=== PATIENT | female | born 1975 | race African-American/Black ===

== ENCOUNTER 2019-12-17 08:57 | Inpatient (IN) | payer OTHER ==
--- NOTE | 2019-12-17 09:08 | BHS.RME ---
Substance Use & Tx History - Substance Use History Alcohol Substance amount: 1/2 gallon Tequilla or whiskey Frequency of use: Daily Substance route: Oral Date of Last Use: 12/15/19 Heroin Substance amount: 2 bundles Frequency of use: Daily Substance route: Inhalation (ex: sniffing or snorting) Date of Last Use: 12/15/19 Cocaine-Crack Substance amount: $200 Frequency of use: Daily Substance route: Inhalation (ex: sniffing or snorting) Date of Last Use: 12/15/19 Nicotine Substance amount: one pack Frequency of use: Daily Substance route: Smoking Date of Last Use: 12/17/19 - Last Treatment Date of last treatment: October 2015 Treatment type: Substance Use Disorder (ANDRZEJ) Where was last treatment: Detox Physical/Psych/Mental Status - Behavior General Behavior: Increased activity (restlessness, agitation) Eye Contact: Normal - Cooperativeness Cooperativeness: Cooperative - Thinking Thought Processes: Tight Thought content: Future oriented - Physical Health Problems Is patient presently having any pain?: No Does patient presently have any injuries (include location): No Does patient currently have a fever: No COWS - Scale Resting Pulse: 0= [place] 80 or Below Sweatin=Flushed/Facial Moisture Restless Observation: 1= Difficult to Sit Still Pupil Size: 0= Normal to Room Light Bone or Joint Aches: 1= Mild Discomfort Runny Nose/ Eye Tearin= Runny Nose/Eyes GI Upset > 30mins: 3= Vomiting/Diarrhea Tremor Observation: 2= Slight Tremor Visible Yawning Observation: 0= None Anxiety or Irritability: 1=Feels Anxious/Irritable Goose Flesh Skin: 0=Smooth Skin COWS Score: 12 CIWA Nausea/Vomitin Muscle Tremors: 4-Moderate,w/Arms Extend Anxiety: 1-Mildly Anxious Agitation: 0-Normal Activity Paroxysmal Sweats: 3 Orientation: 1-Uncertain about Date Tacttile Disturbances: 0-None Auditory Disturbances: 1-Very Mild Visual Disturbances: 2-Mild Sensitivity Headache: 4-Moderately Severe CIWA-Ar Total Score: 19
[2019-12-17 09:20] VITALS: BMI 22.3
--- NOTE | 2019-12-17 09:21 | HP ---
COWS - Scale Resting Pulse: 0= [place] 80 or Below Sweatin=Flushed/Facial Moisture Restless Observation: 1= Difficult to Sit Still Pupil Size: 0= Normal to Room Light Bone or Joint Aches: 1= Mild Discomfort Runny Nose/ Eye Tearin= Runny Nose/Eyes GI Upset > 30mins: 3= Vomiting/Diarrhea Tremor Observation: 2= Slight Tremor Visible Yawning Observation: 0= None Anxiety or Irritability: 1=Feels Anxious/Irritable Goose Flesh Skin: 0=Smooth Skin COWS Score: 12 CIWA Score Nausea/Vomitin Muscle Tremors: 4-Moderate,w/Arms Extend Anxiety: 1-Mildly Anxious Agitation: 0-Normal Activity Paroxysmal Sweats: 3 Orientation: 1-Uncertain about Date Tacttile Disturbances: 0-None Auditory Disturbances: 1-Very Mild Visual Disturbances: 2-Mild Sensitivity Headache: 4-Moderately Severe CIWA-Ar Total Score: 19 - Admission Criteria OASAS Guidelines: Admission for Medically Managed Detox: Requires at least one of the followin. CIWA greater than 12 2. Seizures within the past 24 hours 3. Delirium tremens within the past 24 hours 4. Hallucinations within the past 24 hours 5. Acute intervention needed for co occurring medical disorder 6. Acute intervention needed for co occurring psychiatric disorder 7. Severe withdrawal that cannot be handled at a lower level of care (continued vomiting, continued diarrhea, abnormal vital signs) requiring intravenous medication and/or fluids 8. Admitting History and Physical - Admission Chief Complaint: Ms. Mckenna is a 44 yo woman who presents to [facility] requesting detox from multiple substances. History of Present Illness: Ms. Mckenna is a 44 yo woman who presents to [facility] requesting detox from multiple substances. She was last here in October 2015 and relapsed almost immediately upon discharge. 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 No Narcan at home. Cocaine-Crack Substance amount: $200 Frequency of use: Daily Substance route: Inhalation (ex: sniffing or snorting) Date of Last Use: 12/15/19 Began: age 17 y Nicotine Substance amount: one pack Frequency of use: Daily Substance route: Smoking Date of Last Use: 12/17/19 First smoke: age 17 y Oxycodone: will take up to 5 tabs of 10 mg when she can't get heroin, last dose: 2 days ago Benzos: friends give her some, will take up to 5 tabs, unsure of dose, last taken 2 days ago Methadone: buys on street - Last Treatment Date of last treatment: October 2015 Treatment type: Substance Use Disorder (ANDRZEJ) Where was last treatment: Detox 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 History Source: Patient Limitations to Obtaining History: No Limitations - Past Medical History ...LMP: 10/17/15 - Smoking History Smoking history: Current every day smoker Have you smoked in the past 12 months: Yes Aproximately how many cigarettes per day: 10 Admission [facility] Allergies/Adverse Reactions: Allergies Allergy/AdvReac Type Severity Reaction Status Date / Time No Known Allergies Allergy Verified 12/17/19 09:16 Exam Limitations: No Limitations - Ebola screening Have you traveled outside of the country in the last 21 days: No Have you been sick,other than usual withdrawal symptoms: No Do you have a fever: No - Review of Systems Constitutional: No Symptoms Reported EENT: reports: No Symptoms Reported Respiratory: reports: No Symptoms reported Cardiac: reports: No Symptoms Reported GI: reports: No Symptoms Reported : reports: No Symptoms Reported Musculoskeletal: reports: Back Pain Integumentary: reports: No Symptoms Reported Neuro: reports: No Symptoms reported Endocrine: reports: No Symptoms Reported Hematology: reports: No Symptoms Reported Psychiatric: reports: Anxious Patient History - Patient Medical History Hx Anemia: No Hx Asthma: No Hx Chronic Obstructive Pulmonary Disease (COPD): No Hx Cancer: No Hx Cardiac Disorders: No Hx Congestive Heart Failure: No Hx Hypertension: No Hx Hypercholesterolemia: No Hx Pacemaker: No HX Cerebrovascular Accident: No Hx Seizures: No Hx Dementia: No Hx Diabetes: No Hx Gastrointestinal Disorders: No Hx Liver Disease: No Hx Genitourinary Disorders: No Hx Sexually Transmitted Disorders: No Hx Renal Disease (ESRD): No Hx Thyroid Disease: No Hx Human Immunodeficiency Virus (HIV): No Hx Hepatitis C: No Hx Depression: No Hx Suicide Attempt: No Hx Bipolar Disorder: No Hx Schizophrenia: No - Patient Surgical History Past Surgical History: No Hx Neurologic Surgery: No Hx Cataract Extraction: No Hx Cardiac Surgery: No Hx Lung Surgery: No Hx Breast Surgery: No Hx Breast Biopsy: No Hx Abdominal Surgery: No Hx Appendectomy: No Hx Cholecystectomy: No Hx Genitourinary Surgery: No Hx Section: No Hx Orthopedic Surgery: No Hx Hysterectomy: No Anesthesia Reaction: No - PPD History Date: 10/20/15 - Reproductive History Last Menstrual Period: 10/17/15 - Smoking Cessation Smoking history: Current every day smoker Have you smoked in the past 12 months: Yes Aproximately how many cigarettes per day: 20 Hx Chewing Tobacco Use: No Initiated information on smoking cessation: Yes 'Breaking Loose' booklet given: 12/17/19 - Substances abused Alcohol Substance route: Oral Frequency: Daily Amount used: 1/2 [place] Age of first use: 17 Date of last use: 12/15/19 Heroin Substance route: Inhalation Frequency: Daily Amount used: 2 BUNDLES Age of first use: 17 Date of last use: 12/15/19 Crack Substance route: Smoking Frequency: Daily Amount used: $200 Age of first use: 17 Date of last use: 12/15/19 Admission Physical Exam S - Physical General Appearance: Yes: Mild Distress, Thin, Tremorous, Anxious HEENTM: Yes: EOMI, Hearing grossly Normal, Normocephalic, Normal Voice Respiratory: Yes: Lungs Clear, No Respiratory Distress, No Accessory Muscle Use Neck: Yes: Within Normal Limits, Supple Breast: Yes: Breast Exam Deferred Cardiology: Yes: Regular Rhythm, Regular Rate Abdominal: Yes: Normal Bowel Sounds, Flat, Soft, Tenderness (mild "near hernia", mildline periumbilical) Genitourinary: Yes: Other (deferred) Back: Yes: Normal Inspection Musculoskeletal: Yes: Gait Steady Extremities: Yes: Normal Inspection, Non-Tender Neurological: Yes: Normal Mood/Affect, Normal Response Integumentary: Yes: Normal Color, Dry, Warm - Diagnostic (1) Alcohol dependence with withdrawal, uncomplicated Current Visit: Yes Status: Acute (2) Opiate withdrawal Current Visit: Yes Status: Acute (3) HTN (hypertension) Current Visit: Yes Status: Chronic Qualifiers: Hypertension type: essential hypertension Qualified Code(s): I10 - Essential (primary) hypertension (4) Sedative abuse Current Visit: Yes Status: Acute (5) Nicotine dependence Current Visit: No Status: Acute Qualifiers: Nicotine product type: cigarettes Substance use status: uncomplicated Qualified Code(s): F17.210 - Nicotine dependence, cigarettes, uncomplicated Cleared for Admission [facility] - Detox or Rehab [facility] Level of Care: Medically Managed Detox Regimen/Protocol: Methadone/Librium Breathalyzer - Breathalyzer Breathalyzer: 0 Urine Drug Screen - Results Urine drug screen results: THC-Marijuana, CHANCE-Cocaine, OXY-Oxycodone, MTD- Methadone, BZO-Benzodiazepines Inpatient Rehab Admission - Rehab Decision to Admit Inpatient rehab admission?: No
[2019-12-17] MEDS ORDERED: ACETAMINOPHEN 325 MG TABLET (FP) PO PRN ×2 (09:28)
[2019-12-17] MEDS ORDERED: MENTHOL/PHENOL 1 EACH UD MM PRN (09:28)
[2019-12-17] MEDS ORDERED: MAG HYDROX/AL HYDROX/SIMETH 30 ML UNIT-DOSE CUP PO PRN (09:28)
[2019-12-17] MEDS ORDERED: METHOCARBAMOL 500 MG TABLET PO PRN (09:28)
[2019-12-17] MEDS ORDERED: MAGNESIUM HYDROX 2400MG/30ML ORAL SUSPENSION 30 ML CUP PO PRN (09:28)
[2019-12-17] MEDS ORDERED: chlordiazePOXIDE HCL 25 MG CAPSULE PO PRN (09:28)
[2019-12-17] MEDS ORDERED: MAGNESIUM CITRATE 300 ML BOTTLE PO PRN (09:28)
[2019-12-17] MEDS ORDERED: cloNIDine HCL 0.1 MG TABLET PO PRN (09:28)
[2019-12-17] MEDS ORDERED: NICOTINE POLACRILEX 2 MG GUM BUC PRN (09:28)
[2019-12-17] MEDS ORDERED: IBUPROFEN 400 MG TABLET (FP) PO PRN (09:28)
[2019-12-17] MEDS ORDERED: BISMUTH SUBSALICYLATE 524 MG/30 ML UD PO PRN (09:28)
[2019-12-17] MEDS ORDERED: ONDANSETRON *ODT* 4 MG TABLET SL PRN (09:28)
[2019-12-17] MEDS ORDERED: LISINOPRIL 10 MG TABLET (FP) ONE (09:43)
[2019-12-17] MEDS ORDERED: METHADONE HCL 10 MG TABLET (FOR DETOX USE ONLY) PO ONE (10:00)
[2019-12-17] MEDS ORDERED: LISINOPRIL 10 MG TABLET (FP) PO ONE (10:15)
[2019-12-17] MEDS: hydrOXYzine PAMOATE 25 MG CAPSULE (FP) PO SCH ×4 (10:39→22:31)
[2019-12-17] MEDS: chlordiazePOXIDE HCL 25 MG CAPSULE PO SCH ×3 (10:39→22:32)
[2019-12-17] MEDS: NICOTINE 21 MG/24 HOURS TOPICAL PATCH TD SCH (10:40)
[2019-12-17] MEDS: PRENATAL VITAMINS W/ FOLIC ACID TABLET (FP) PO SCH (10:40)
[2019-12-17 14:49] LABS: HEMATOCRIT 32.9 % (32.4-45.2); HEMOGLOBIN 10.8 GM/dL (10.7-15.3); MCH 30.2 pg (25.7-33.7); MCHC 32.8 g/dl (32.0-36.0); MEAN PLT VOLUME 7.8 fl (7.5-11.1); PLATELET COUNT 394 K/MM3 (134-434); RBC 3.57 M/mm3 (3.60-5.2); RDW 13.1 % (11.6-15.6); WHITE BLOOD COUNT 6.9 K/mm3 (4.0-10.0)
[2019-12-17 14:59] LABS: ALBUMIN 3.5 g/dl (3.4-5.0); BILIRUBIN,TOTAL 0.2 mg/dL (0.2-1); BLOOD UREA NITROGEN 21.9 mg/dL (7-18); CALCIUM 9.2 mg/dL (8.5-10.1); CREATININE 1.3 mg/dL (0.55-1.3); POTASSIUM 4.1 mmol/L (3.5-5.1); TOT PROT 7.4 g/dl (6.4-8.2)
--- NOTE | 2019-12-17 15:30 | EKG ---
Test Reason : Blood Pressure : / mmHG Vent. Rate : 059 BPM Atrial Rate : 059 BPM P-R Int : 134 ms QRS Dur : 096 ms QT Int : 438 ms P-R-T Axes : 073 062 046 degrees QTc Int : 433 ms SINUS BRADYCARDIA MINIMAL VOLTAGE CRITERIA FOR LVH, MAY BE NORMAL VARIANT BORDERLINE ECG NO PREVIOUS ECGS AVAILABLE Confirmed by CAMILLE NUNO MD ([id number]) on 12/17/2019 3:29:59 PM Referred By: Confirmed By:CAMILLE NUNO MD
[2019-12-17] MEDS: THIAMINE HCL 100 MG TABLET (FP) PO SCH (22:31)
[2019-12-17] MEDS: MELATONIN 5 MG TABLETS PO SCH (22:32)
[2019-12-18] MEDS: hydrOXYzine PAMOATE 25 MG CAPSULE (FP) PO SCH ×5 (06:56→22:41)
[2019-12-18] MEDS: chlordiazePOXIDE HCL 25 MG CAPSULE PO SCH ×4 (06:56→22:41)
[2019-12-18] MEDS ORDERED: METHADONE HCL 5 MG TABLET (FOR DETOX USE ONLY) ONE (09:29)
[2019-12-18] MEDS ORDERED: METHADONE HCL 10 MG TABLET (FOR DETOX USE ONLY) ONE (09:29)
[2019-12-18] MEDS ORDERED: METHADONE (DETOX) 20 MG, METHADONE (DETOX) 5 MG PO ONE (10:00)
[2019-12-18] MEDS: PRENATAL VITAMINS W/ FOLIC ACID TABLET (FP) PO SCH (10:06)
[2019-12-18] MEDS: NICOTINE 21 MG/24 HOURS TOPICAL PATCH TD SCH (10:06)
--- NOTE | 2019-12-18 10:10 | PN ---
[facility] CIWA - CIWA Score Nausea/Vomitin-Int. Nausea w/Dry Heave Anxiety: 1-Mildly Anxious Agitation: 0-Normal Activity Paroxysmal Sweats: No Perspiration Orientation: 1-Uncertain about Date Tacttile Disturbances: 1-Very Mild Itch/Numbness Auditory Disturbances: 0-None Visual Disturbances: 1-Very Mild Sensitivity S COWS - Scale Resting Pulse: 1= [place] 81-100 Sweatin= No chills or Flushing Restless Observation: 0= Sits Still Pupil Size: 0= Normal to Room Light Bone or Joint Aches: 0= None Runny Nose/ Eye Tearin= None GI Upset > 30mins: 0= None Tremor Observation of Outstretched Hands: 0= None Yawning Observation: 0= None Anxiety or Irritability: 1=Feels Anxious/Irritable Goose Flesh Skin: 0=Smooth Skin COWS Score: 2 [facility] Progress Note (SOAP) Subjective: Patient examined in the room. Patient was laying in bed. Patient stated she has been feeling better and has no further complaints. Objective: 12/18/19 10:10 General: Patient alert and in no acute distress, WNWD Mental status: Patient judgment intact, mild anxiety MSK/Neuro: Patient MS 5/5, sensation intact Gait: Patient ambulates properly, gait steady 12/18/19 10:11 Last Vital Signs Temp Pulse Resp BP Pulse Ox 97.4 F L 73 16 132/61 99 12/18/19 08:50 12/18/19 08:50 12/18/19 08:50 12/18/19 08:50 12/18/19 08:50 CBC, BMP 12/17/19 09:45 12/17/19 09:45 Current Medications Generic Name Dose Route Start Last Admin Trade Name Freq PRN Reason Stop Dose Admin Acetaminophen 650 mg 12/17/19 09:28 Tylenol - PO Q6H PRN PAIN LEVEL 4 - 6 Acetaminophen 650 mg 12/17/19 09:28 Tylenol - PO Q6H PRN FEVER Al Hydroxide/Mg Hydroxide 30 ml 12/17/19 09:28 Mylanta Oral Suspension - PO Q6H PRN DYSPEPSIA Bismuth Subsalicylate 524 mg 12/17/19 09:28 Pepto-Bismol - PO Q1H PRN DIARRHEA Chlordiazepoxide HCl 50 mg 12/17/19 11:00 12/18/19 10:06 Librium - PO 12/18/19 23:01 50 mg [id number] MAYA Administration Chlordiazepoxide HCl 25 mg 12/19/19 05:00 Librium - PO 12/19/19 23:01 [id number] MAYA Chlordiazepoxide HCl 25 mg 12/17/19 09:28 Librium - PO 12/19/19 23:59 Q4H PRN WITHDRAWAL(CONT SUBST) Chlordiazepoxide HCl 10 mg 12/20/19 05:00 Librium - PO 12/20/19 23:01 [id number] MAYA Chlordiazepoxide HCl 10 mg 12/21/19 05:00 Librium - PO 12/21/19 17:01 Q12H MAYA Chlordiazepoxide HCl 10 mg 12/20/19 00:00 Librium - PO 12/21/19 00:00 Q4H PRN WITHDRAWAL(CONT SUBST) Chlordiazepoxide HCl 10 mg 12/22/19 05:00 Librium - PO 12/22/19 05:01 ONCE@0500 ONE Clonidine 0.1 mg 12/17/19 09:28 Catapres - PO 12/19/19 23:59 Q4H PRN Withdrawal Symptoms Eucalyptus/Menthol/Phenol/Sorbitol 1 each 12/17/19 09:28 Cepastat Lozenge - MM 12/23/19 09:28 Q4H PRN SORE THROAT Hydroxyzine Pamoate 25 mg 12/17/19 10:00 12/18/19 10:05 Vistaril - PO 12/23/19 09:28 25 mg Q4HWA MAYA Administration Ibuprofen 400 mg 12/17/19 09:28 Motrin - PO Q6H PRN PAIN LEVEL 1 - 3 Magnesium Citrate 300 ml 12/17/19 09:28 Citroma - PO Q48H PRN CONSTIPATION Magnesium Hydroxide 30 ml 12/17/19 09:28 Milk Of Magnesia - PO PRN PRN CONSTIPATION Melatonin 5 mg 12/17/19 22:00 12/17/19 22:32 Melatonin PO 5 mg HS MAYA Administration Methadone HCl 5 mg 12/22/19 06:00 Dolophine - PO 12/22/19 06:01 ONCE@0600 ONE Methadone HCl 10 mg 12/21/19 10:00 Dolophine - PO 12/21/19 10:01 ONCE ONE Methadone HCl 20 mg 12/19/19 10:00 Dolophine - PO 12/19/19 10:01 ONCE ONE Methadone HCl 10 mg/ Methadone 15 mg 12/20/19 10:00 HCl 5 mg PO 12/20/19 10:01 ONCE ONE Methocarbamol 500 mg 12/17/19 09:28 Robaxin - PO 12/23/19 09:28 Q6H PRN MUSCLE SPASMS Nicotine 21 mg 12/17/19 10:00 12/18/19 10:06 Nicoderm Patch - TD Not Given DAILY MAYA Nicotine Polacrilex 2 mg 12/17/19 09:28 Nicorette Gum - BUC Q2H PRN NICOTINE REPLACEMENT RX Ondansetron HCl 4 mg 12/17/19 09:28 Zofran Odt - SL 12/23/19 09:30 Q8H PRN Nausea/Vomiting Multivit/Folic Acid/Iron 1 tab 12/17/19 10:00 12/18/19 10:06 Vitamins (Sjr) - PO 1 tab DAILY MAYA Administration Thiamine HCl 100 mg 12/17/19 22:00 12/17/19 22:31 Vitamin B1 - PO 100 mg HS MAYA Administration Discontinued Medications Generic Name Dose Route Start Last Admin Trade Name Reyq PRN Reason Stop Dose Admin Lisinopril 10 mg 12/17/19 10:15 12/17/19 09:45 Prinivil PO 12/17/19 10:16 10 mg ONCE ONE Administration Methadone HCl 30 mg 12/17/19 10:00 12/17/19 10:39 Dolophine - PO 12/17/19 10:01 30 mg ONCE ONE Administration Methadone HCl 20 mg/ Methadone 25 mg 12/18/19 10:00 12/18/19 10:05 HCl 5 mg PO 12/18/19 10:01 25 mg ONCE ONE Administration Tuberculin PPD 5 units 12/17/19 10:00 12/17/19 10:44 Tubersol ([facility] Only) 5ml Vial ID 12/17/19 10:01 5 tu ONCE ONE Administration Assessment: 12/18/19 10:11 1. Patient on librium taper for alcohol abuse 2. Patient on methadone protocol for heroin use Plan: 1. Patient on librium protocol for ongoing alcohol abuse 2. Patient on methadone protocol for heroin use 3. Continue detox regimen and monitor vitals
[2019-12-18] MEDS ORDERED: ONDANSETRON *ODT* 4 MG TABLET SL ONE (19:00)
--- NOTE | 2019-12-18 19:00 | PN ---
S Progress Note Note: Vital Signs Temperature 97.1 F L 12/18/19 16:37 Pulse Rate 85 12/18/19 16:37 Respiratory Rate 18 12/18/19 16:37 Blood Pressure 144/89 12/18/19 16:37 O2 Sat by Pulse Oximetry (%) 98 12/18/19 13:14 c/o of nausea d/t withdrawal sx one time dose zofran 4mg fluids as tolerated continue to monitor
[2019-12-18] MEDS: THIAMINE HCL 100 MG TABLET (FP) PO SCH (22:41)
[2019-12-18] MEDS: MELATONIN 5 MG TABLETS PO SCH (22:41)
[2019-12-19] MEDS ORDERED: MASKS NR ONE (02:21)
[2019-12-19] MEDS: hydrOXYzine PAMOATE 25 MG CAPSULE (FP) PO SCH ×5 (05:41→22:59)
[2019-12-19] MEDS: chlordiazePOXIDE HCL 25 MG CAPSULE PO SCH ×4 (05:41→22:59)
[2019-12-19] MEDS ORDERED: METHADONE HCL 10 MG TABLET (FOR DETOX USE ONLY) PO ONE (10:00)
[2019-12-19] MEDS: PRENATAL VITAMINS W/ FOLIC ACID TABLET (FP) PO SCH (10:14)
[2019-12-19] MEDS: NICOTINE 21 MG/24 HOURS TOPICAL PATCH TD SCH (10:14)
--- NOTE | 2019-12-19 10:25 | PN ---
[facility] CIWA - CIWA Score Nausea/Vomitin-No Nausea/No Vomiting Muscle Tremors: 2 Anxiety: 2 Agitation: 0-Normal Activity Paroxysmal Sweats: 2 Orientation: 0-Oriented Tacttile Disturbances: 0-None Auditory Disturbances: 0-None Visual Disturbances: 0-None Headache: 2-Mild CIWA-Ar Total Score: 8 [facility] COWS - Scale Resting Pulse: 0= [place] 80 or Below Sweatin= No chills or Flushing Restless Observation: 1= Difficult to Sit Still Pupil Size: 0= Normal to Room Light Bone or Joint Aches: 2= Severe Diffuse Aches Runny Nose/ Eye Tearin= None GI Upset > 30mins: 0= None Tremor Observation of Outstretched Hands: 2= Slight Tremor Visible Yawning Observation: 1= 1-2x During Session Anxiety or Irritability: 2=Irritable/Anxious Goose Flesh Skin: 0=Smooth Skin COWS Score: 8 S Progress Note (SOAP) Subjective: c/o anxiety, shakes, sweats, and headache. Objective: 12/19/19 10:25 Vital Signs 12/19/19 12/19/19 06:38 09:40 Temperature 98.1 F 97.5 F L Pulse Rate 69 79 Respiratory 18 18 Rate Blood Pressure 102/66 116/80 O2 Sat by Pulse 100 100 Oximetry (%) Laboratory Last Values WBC 6.9 K/mm3 (4.0-10.0) 12/17/19 09:45 RBC 3.57 M/mm3 (3.60-5.2) L 12/17/19 09:45 Hgb 10.8 GM/dL (10.7-15.3) 12/17/19 09:45 Hct 32.9 % (32.4-45.2) D 12/17/19 09:45 MCV 92.0 fl (80-96) 12/17/19 09:45 MCH 30.2 pg (25.7-33.7) 12/17/19 09:45 MCHC 32.8 g/dl (32.0-36.0) 12/17/19 09:45 RDW 13.1 % (11.6-15.6) D 12/17/19 09:45 Plt Count 394 K/MM3 (134-434) 12/17/19 09:45 MPV 7.8 fl (7.5-11.1) 12/17/19 09:45 Sodium 139 mmol/L (136-145) 12/17/19 09:45 Potassium 4.1 mmol/L (3.5-5.1) 12/17/19 09:45 Chloride 105 mmol/L (98-107) 12/17/19 09:45 Carbon Dioxide 31 mmol/L (21-32) 12/17/19 09:45 Anion Gap 3 MMOL/L (8-16) L 12/17/19 09:45 BUN 21.9 mg/dL (7-18) H 12/17/19 09:45 Creatinine 1.3 mg/dL (0.55-1.3) 12/17/19 09:45 Est GFR (CKD-EPI)AfAm 58.19 12/17/19 09:45 Est GFR (CKD-EPI)NonAf 50.20 12/17/19 09:45 Random Glucose 81 mg/dL (74-106) 12/17/19 09:45 Calcium 9.2 mg/dL (8.5-10.1) 12/17/19 09:45 Total Bilirubin 0.2 mg/dL (0.2-1) 12/17/19 09:45 AST 11 U/L (15-37) L 12/17/19 09:45 ALT 14 U/L (13-61) 12/17/19 09:45 Alkaline Phosphatase 54 U/L (45-117) 12/17/19 09:45 Total Protein 7.4 g/dl (6.4-8.2) 12/17/19 09:45 Albumin 3.5 g/dl (3.4-5.0) 12/17/19 09:45 POC Urine HCG, Qual Negative 12/17/19 09:20 Syphilis Serology Non-reactive (NONREACTIVE) 12/17/19 09:45 COVID-19 (KIARA) Not detected (Not Detected) 12/17/19 09:45 Labs noted. Assessment: 12/19/19 10:25 AOX3, in no acute respiratory distress. Full ROM, ambulating in the unit. Withdrawal symptoms. Plan: continue detox.
[2019-12-19] MEDS: THIAMINE HCL 100 MG TABLET (FP) PO SCH (22:59)
[2019-12-19] MEDS: MELATONIN 5 MG TABLETS PO SCH (22:59)
[2019-12-20] MEDS ORDERED: chlordiazePOXIDE HCL 10 MG CAPSULE PO PRN
[2019-12-20] MEDS ORDERED: chlordiazePOXIDE HCL 10 MG CAPSULE PO SCH (05:00)
[2019-12-20] MEDS: hydrOXYzine PAMOATE 25 MG CAPSULE (FP) PO SCH (05:46)
[2019-12-20 09:29] VITALS: BP 131/78; PULSE 91; TEMP 97.7
[2019-12-20] MEDS ORDERED: METHADONE (DETOX) 10 MG, METHADONE (DETOX) 5 MG PO ONE (10:00)
--- NOTE | 2019-12-20 13:27 | DS ---
[facility] Detox Discharge Summary Admission Date: 12/17/19 Discharge Date: 12/20/19 - History Present History: Alcohol Dependence, Opioid Dependence Additional Comments: 44 years old female was admitted on 12/17/19 for alcohol and opiate withdrawal treated with librium and methadone regiments ms gomez insists to leave the detox unit today that "I have life ahead of me" alert oriented x 3 steady gaits General Appearance: Yes: no Distress, Thin, mild Tremorous, less Anxious HEENTM: Yes: EOMI, Hearing grossly Normal, Normocephalic, Normal Voice Respiratory: Yes: Lungs Clear, No Respiratory Distress, No Accessory Muscle Use Neck: Yes: Within Normal Limits, Supple Breast: Yes: Breast Exam Deferred Cardiology: Yes: Regular Rhythm, Regular Rate Abdominal: Yes: Normal Bowel Sounds, Flat, Soft, Tenderness (mild "near hernia", mildline periumbilical) Genitourinary: Yes: Other (deferred) Back: Yes: Normal Inspection Musculoskeletal: Yes: Gait Steady Extremities: Yes: Normal Inspection, Non-Tender Neurological: Yes: Normal Mood/Affect, Normal Response Integumentary: Yes: Normal Color, Dry, Warm Pertinent Past History: time for discharge 47 minutes treatment team met with ms gomez to discuss the benefits of librium and methadone regiments ms gomez states that she has to take care of her grandchildren - Physical Exam Results Vital Signs: Vital Signs Temperature 97.7 F 12/20/19 08:35 Pulse Rate 91 H 12/20/19 08:35 Respiratory Rate 18 12/20/19 08:35 Blood Pressure 131/78 12/20/19 08:35 O2 Sat by Pulse Oximetry (%) 100 12/20/19 08:35 Pertinent Admission Physical Exam Findings: alcohol and opiate withdrawal Vital Signs - 24 hr 12/19/19 12/19/19 12/20/19 16:41 21:05 06:25 Temperature 98.3 F 97.7 F 98.2 F Pulse Rate 73 79 74 Respiratory 18 16 18 Rate Blood Pressure 106/67 119/75 116/70 O2 Sat by Pulse 100 98 100 Oximetry (%) 12/20/19 08:35 Temperature 97.7 F Pulse Rate 91 H Respiratory 18 Rate Blood Pressure 131/78 O2 Sat by Pulse 100 Oximetry (%) Laboratory Tests 12/17/19 12/17/19 12/17/19 09:20 09:45 09:45 WBC 6.9 RBC 3.57 L Hgb 10.8 Hct 32.9 D MCV 92.0 MCH 30.2 MCHC 32.8 RDW 13.1 D Plt Count 394 MPV 7.8 Sodium 139 Potassium 4.1 Chloride 105 Carbon Dioxide 31 Anion Gap 3 L BUN 21.9 H Creatinine 1.3 Est GFR (CKD-EPI)AfAm 58.19 Est GFR (CKD-EPI)NonAf 50.20 Random Glucose 81 Calcium 9.2 Total Bilirubin 0.2 AST 11 L ALT 14 Alkaline Phosphatase 54 Total Protein 7.4 Albumin 3.5 POC Urine HCG, Qual Negative Syphilis Serology COVID-19 (KIARA) 12/17/19 12/17/19 09:45 09:45 WBC RBC Hgb Hct MCV MCH MCHC RDW Plt Count MPV Sodium Potassium Chloride Carbon Dioxide Anion Gap BUN Creatinine Est GFR (CKD-EPI)AfAm Est GFR (CKD-EPI)NonAf Random Glucose Calcium Total Bilirubin AST ALT Alkaline Phosphatase Total Protein Albumin POC Urine HCG, Qual Syphilis Serology Non-reactive COVID-19 (KIARA) Not detected - Treatment Hospital Course: Detox Protocol Followed, Detoxed Safely, Responded well, Discharged Condition Good, Rehab Referral Accepted Patient has Accepted [facility] Ref[facility] - Medication Discharge Medications: Ambulatory Orders NK [No Known Home Medication] 10/18/15 - Diagnosis (1) Alcohol dependence with withdrawal, uncomplicated Status: Acute (2) Heroin use disorder, severe, dependence Status: Acute (3) Nicotine dependence Status: Acute Qualifiers: Nicotine product type: cigarettes Substance use status: in withdrawal Qualified Code(s): F17.213 - Nicotine dependence, cigarettes, with withdrawal (4) HTN (hypertension) Status: Chronic Qualifiers: Hypertension type: essential hypertension Qualified Code(s): I10 - Essential (primary) hypertension (5) Weight decrease Status: Chronic - AMA Did Patient Leave Against Medical Advice: No CIWA Score - CIWA Score Nausea/Vomitin-No Nausea/No Vomiting Muscle Tremors: 2 Anxiety: 1-Mildly Anxious Agitation: 0-Normal Activity Paroxysmal Sweats: 1-Minimal Palms Moist Orientation: 0-Oriented Tacttile Disturbances: 0-None Auditory Disturbances: 0-None Visual Disturbances: 0-None Headache: 0-None Present CIWA-Ar Total Score: 4 COWS (PN) - Opiate Withdrawal Resting Pulse: 1= [place] 81-100 Sweatin= No chills or Flushing Restless Observation: 0= Sits Still Pupil Size: 0= Normal to Room Light Bone or Joint Aches: 1= Mild Discomfort Runny Nose/ Eye Tearin= None GI Upset > 30mins: 0= None Tremor Observation of Outstretched Hands: 1= Tremor [place], Not Seen Yawning Observation: 0= None Anxiety or Irritability: 1=Feels Anxious/Irritable Goose Flesh Skin: 0=Smooth Skin COWS Score: 4
[2019-12-21] MEDS ORDERED: chlordiazePOXIDE HCL 10 MG CAPSULE PO SCH (05:00)
[2019-12-21] MEDS ORDERED: METHADONE HCL 10 MG TABLET (FOR DETOX USE ONLY) PO ONE (10:00)
[2019-12-22] MEDS ORDERED: chlordiazePOXIDE HCL 10 MG CAPSULE PO ONE (05:00)
[2019-12-22] MEDS ORDERED: METHADONE HCL 5 MG TABLET (FOR DETOX USE ONLY) PO ONE (06:00)
== END 2019-12-20 09:46 | disposition home or self-care (01) | DRG 773 ==
LOC: YASAS 08:57 → Y3N 09:27
PROVIDERS: ADMIT Allergy & Immunology; ATTEND Allergy & Immunology
PROC: HZ2ZZZZ Detoxification Services for Substance Abuse Treatment (ICD-10-PCS; principal; 2019-12-17)
DX: F10.230 Alcohol dependence with withdrawal, uncomplicated (principal); F11.23 Opioid dependence with withdrawal; F14.20 Cocaine dependence, uncomplicated; F13.10 Sedative, hypnotic or anxiolytic abuse, uncomplicated; F17.210 Nicotine dependence, cigarettes, uncomplicated; I10 Essential (primary) hypertension; R63.4 Abnormal weight loss; Z68.22 Body mass index [BMI] 22.0-22.9, adult; Z59.0 Homelessness
CPT/HCPCS: 36415; 80053; 81025; 85027; 86780; 93005; 93010; J0735; U0003

== ENCOUNTER 2020-08-15 11:31 | Inpatient (IN) | payer OTHER ==
[2020-08-15 12:27] VITALS: BMI 22.6
[2020-08-15] MEDS ORDERED: IBUPROFEN 400 MG TABLET (FP) PO PRN (13:27)
[2020-08-15] MEDS ORDERED: MENTHOL/PHENOL 1 EACH UD MM PRN (13:27)
[2020-08-15] MEDS ORDERED: NICOTINE POLACRILEX 2 MG GUM BUC PRN (13:27)
[2020-08-15] MEDS ORDERED: ACETAMINOPHEN 325 MG TABLET (FP) PO PRN ×2 (13:27)
[2020-08-15] MEDS ORDERED: MAGNESIUM CITRATE 300 ML BOTTLE PO PRN (13:27)
[2020-08-15] MEDS ORDERED: MAGNESIUM HYDROX 2400MG/30ML ORAL SUSPENSION 30 ML CUP PO PRN (13:27)
[2020-08-15] MEDS ORDERED: METHADONE HCL 10 MG TABLET (FOR DETOX USE ONLY) PO ONE (13:27)
[2020-08-15] MEDS ORDERED: MAG HYDROX/AL HYDROX/SIMETH 30 ML UNIT-DOSE CUP PO PRN (13:27)
[2020-08-15] MEDS ORDERED: ONDANSETRON *ODT* 4 MG TABLET SL PRN (13:27)
[2020-08-15] MEDS ORDERED: BISMUTH SUBSALICYLATE 262 MG/15 ML BTL PO PRN (13:27)
[2020-08-15] MEDS: hydrOXYzine PAMOATE 25 MG CAPSULE (FP) PO SCH ×3 (15:22→22:50)
[2020-08-15] MEDS: METHOCARBAMOL 500 MG TABLET PO PRN (15:22)
[2020-08-15] MEDS: PRENATAL VITAMINS W/ FOLIC ACID TABLET (FP) PO SCH (15:22)
[2020-08-15] MEDS: cloNIDine HCL 0.1 MG TABLET PO PRN ×2 (15:22→22:50)
[2020-08-15] MEDS: NICOTINE 21 MG/24 HOURS TOPICAL PATCH TD SCH (15:24)
[2020-08-15 16:18] LABS: HEMATOCRIT 34.9 % (32.4-45.2); HEMOGLOBIN 11.6 GM/dL (10.7-15.3); MCH 30.6 pg (25.7-33.7); MCHC 33.2 g/dl (32.0-36.0); MEAN CELL VOLUME 92.1 fl (80-96); MEAN PLT VOLUME 8.2 fl (7.5-11.1); PLATELET COUNT 314 K/MM3 (134-434); RBC 3.79 M/mm3 (3.60-5.2); RDW 13.3 % (11.6-15.6); WHITE BLOOD COUNT 5.9 K/mm3 (4.0-10.0)
[2020-08-15 16:59] LABS: CALCIUM 8.5 mg/dL (8.5-10.1)
[2020-08-15 17:00] LABS: BLOOD UREA NITROGEN 21.2 mg/dL (7-18); CREATININE 1.5 mg/dL (0.55-1.3)
[2020-08-15 17:01] LABS: TOT PROT 6.3 g/dl (6.4-8.2)
[2020-08-15 17:09] LABS: BILIRUBIN,TOTAL 0.1 mg/dL (0.2-1)
[2020-08-15] MEDS: MELATONIN 5 MG TABLETS PO SCH (22:50)
[2020-08-15] MEDS: THIAMINE HCL 100 MG TABLET (FP) PO SCH (22:50)
[2020-08-16] MEDS: hydrOXYzine PAMOATE 25 MG CAPSULE (FP) PO SCH ×3 (05:06→13:21)
[2020-08-16] MEDS ORDERED: METHADONE HCL 5 MG TABLET (FOR DETOX USE ONLY) ONE (08:48)
[2020-08-16] MEDS ORDERED: METHADONE HCL 10 MG TABLET (FOR DETOX USE ONLY) ONE (08:49)
[2020-08-16] MEDS ORDERED: METHADONE (DETOX) 20 MG, METHADONE (DETOX) 5 MG PO ONE (10:00)
[2020-08-16] MEDS: PRENATAL VITAMINS W/ FOLIC ACID TABLET (FP) PO SCH (10:07)
[2020-08-16] MEDS: NICOTINE 21 MG/24 HOURS TOPICAL PATCH TD SCH (10:07)
[2020-08-16] MEDS: METHOCARBAMOL 500 MG TABLET PO PRN (17:25)
[2020-08-16] MEDS: cloNIDine HCL 0.1 MG TABLET PO PRN ×2 (17:25→22:13)
[2020-08-16] MEDS: hydrOXYzine PAMOATE 25 MG CAPSULE (FP) PO PRN ×2 (17:25→22:12)
[2020-08-16] MEDS: MELATONIN 5 MG TABLETS PO SCH (22:12)
[2020-08-16] MEDS: THIAMINE HCL 100 MG TABLET (FP) PO SCH (22:12)
[2020-08-17] MEDS: NICOTINE 21 MG/24 HOURS TOPICAL PATCH TD SCH (09:03)
[2020-08-17] MEDS: hydrOXYzine PAMOATE 25 MG CAPSULE (FP) PO PRN ×4 (09:07→23:50)
[2020-08-17] MEDS: PRENATAL VITAMINS W/ FOLIC ACID TABLET (FP) PO SCH (09:08)
[2020-08-17] MEDS ORDERED: METHADONE HCL 10 MG TABLET (FOR DETOX USE ONLY) PO ONE (10:00)
[2020-08-17 11:00] LABS: BLOOD UREA NITROGEN 18.4 mg/dL (7-18)
[2020-08-17 11:04] LABS: CREATININE 1.3 mg/dL (0.55-1.3)
[2020-08-17] MEDS: METHOCARBAMOL 500 MG TABLET PO PRN ×2 (14:32→22:25)
[2020-08-17] MEDS: diazePAM 5 MG TABLET PO PRN ×2 (14:33→18:36)
[2020-08-17] MEDS: THIAMINE HCL 100 MG TABLET (FP) PO SCH (22:25)
[2020-08-17] MEDS: MELATONIN 5 MG TABLETS PO SCH (22:25)
[2020-08-18] MEDS: diazePAM 5 MG TABLET PO PRN ×3 (04:03→20:58)
[2020-08-18] MEDS: METHOCARBAMOL 500 MG TABLET PO PRN ×2 (05:37→16:47)
[2020-08-18] MEDS: hydrOXYzine PAMOATE 25 MG CAPSULE (FP) PO PRN ×4 (05:37→20:58)
[2020-08-18 06:07] LABS: SARS-CoV-2 NAA Not Detected (Not Detected)
[2020-08-18] MEDS ORDERED: METHADONE HCL 10 MG TABLET (FOR DETOX USE ONLY) ONE (09:14)
[2020-08-18] MEDS ORDERED: METHADONE HCL 5 MG TABLET (FOR DETOX USE ONLY) ONE (09:15)
[2020-08-18] MEDS: PRENATAL VITAMINS W/ FOLIC ACID TABLET (FP) PO SCH (09:33)
[2020-08-18] MEDS: NICOTINE 21 MG/24 HOURS TOPICAL PATCH TD SCH (09:34)
[2020-08-18] MEDS ORDERED: METHADONE (DETOX) 10 MG, METHADONE (DETOX) 5 MG PO ONE (10:00)
[2020-08-18] MEDS: MELATONIN 5 MG TABLETS PO SCH (21:45)
[2020-08-18] MEDS: THIAMINE HCL 100 MG TABLET (FP) PO SCH (21:45)
[2020-08-19] MEDS: diazePAM 5 MG TABLET PO PRN (03:31)
[2020-08-19] MEDS: hydrOXYzine PAMOATE 25 MG CAPSULE (FP) PO PRN ×2 (03:31→09:32)
[2020-08-19 08:50] VITALS: BP 102/66; PULSE 62; TEMP 97.2
[2020-08-19] MEDS: METHOCARBAMOL 500 MG TABLET PO PRN (09:32)
[2020-08-19] MEDS: NICOTINE 21 MG/24 HOURS TOPICAL PATCH TD SCH (09:33)
[2020-08-19] MEDS: PRENATAL VITAMINS W/ FOLIC ACID TABLET (FP) PO SCH (09:33)
[2020-08-19] MEDS ORDERED: METHADONE HCL 10 MG TABLET (FOR DETOX USE ONLY) PO ONE (10:00)
[2020-08-20] MEDS ORDERED: METHADONE HCL 5 MG TABLET (FOR DETOX USE ONLY) PO ONE (06:00)
== END 2020-08-19 11:18 | disposition home or self-care (01) | DRG 773 ==
LOC: YASAS 11:31 → Y6N 14:31 → Y3N 08-16 10:48
PROVIDERS: ADMIT Allergy & Immunology; ATTEND Allergy & Immunology
PROC: HZ2ZZZZ Detoxification Services for Substance Abuse Treatment (ICD-10-PCS; principal; 2020-08-15)
DX: F11.23 Opioid dependence with withdrawal (principal); F10.230 Alcohol dependence with withdrawal, uncomplicated; F12.20 Cannabis dependence, uncomplicated; F17.210 Nicotine dependence, cigarettes, uncomplicated; F19.282 Other psychoactive substance dependence with psychoactive substance-induced sleep disorder; I10 Essential (primary) hypertension; R63.4 Abnormal weight loss; Z68.22 Body mass index [BMI] 22.0-22.9, adult
CPT/HCPCS: 36415; 80053; 81025; 82565; 84520; 85027; 86780; 93005; 93010; C9803; J0735; U0003; U0005

== ENCOUNTER 2021-12-31 09:30 | Inpatient (IN) | payer OTHER ==
[2021-12-31 10:20] VITALS: RESP 18; BMI 21.9
[2021-12-31] MEDS ORDERED: P-EPHED 60MG/TRIPROLIDI 2.5MG TABLET PO PRN (10:31)
[2021-12-31] MEDS ORDERED: IBUPROFEN 400 MG TABLET (FP) PO PRN (10:31)
[2021-12-31] MEDS ORDERED: NALOXONE HCL (KLOXXADO) 8 MG SPRAY NS PRN (10:31)
[2021-12-31] MEDS ORDERED: ONDANSETRON *ODT* 4 MG TABLET SL PRN (10:31)
[2021-12-31] MEDS ORDERED: MAG HYDROX/AL HYDROX/SIMETH 30 ML UNIT-DOSE CUP PO PRN (10:31)
[2021-12-31] MEDS ORDERED: MELATONIN 5 MG TABLETS PO PRN (10:31)
[2021-12-31] MEDS ORDERED: DICYCLOMINE HCL 10 MG CAPSULE PO PRN (10:31)
[2021-12-31] MEDS ORDERED: MAGNESIUM HYDROX 2400MG/30ML ORAL SUSPENSION 30 ML CUP PO PRN (10:31)
[2021-12-31] MEDS ORDERED: BENZOCAINE/MENTHOL (CHLORASEPTIC ) LOZENGE MM PRN (10:31)
[2021-12-31] MEDS ORDERED: BISMUTH SUBSALICYLATE 524 MG/30 ML PO PRN (10:31)
[2021-12-31] MEDS ORDERED: LOPERAMIDE HCL 2 MG CAPSULE PO PRN (10:31)
[2021-12-31] MEDS ORDERED: NICOTINE POLACRILEX 2 MG GUM BUC PRN (10:31)
[2021-12-31] MEDS ORDERED: ACETAMINOPHEN 325 MG TABLET (FP) PO PRN ×2 (10:31)
[2021-12-31] MEDS ORDERED: MAGNESIUM CITRATE 300 ML BOTTLE PO PRN (10:31)
[2021-12-31] MEDS ORDERED: guaiFENesin 200 MG/10 ML 10 ML UNIT-DOSE CUPS PO PRN (10:31)
[2021-12-31] MEDS ORDERED: IBUPROFEN 600 MG TABLET (FP) PO PRN (10:31)
[2021-12-31] MEDS: METHOCARBAMOL 500 MG TABLET PO PRN ×2 (11:41→20:39)
[2021-12-31] MEDS: hydrOXYzine PAMOATE 25 MG CAPSULE (FP) PO PRN (11:41)
[2021-12-31] MEDS: diazePAM 5 MG TABLET PO PRN ×2 (11:42→20:40)
[2021-12-31] MEDS ORDERED: THIAMINE HCL 100 MG TABLET (FP) PO SCH (22:00)
[2022-01-01] MEDS ORDERED: cloNIDine HCL 0.1 MG TABLET PO ONE (06:14)
[2022-01-01] MEDS ORDERED: cloNIDine HCL 0.1 MG TABLET PO PRN (09:44)
[2022-01-01 09:55] VITALS: BP 159/135; PULSE 91; TEMP 96.9
[2022-01-01] MEDS ORDERED: amLODIPine BESYLATE 10 MG TABLET (FP) PO SCH (10:00)
[2022-01-01] MEDS ORDERED: methaDONE HCL 10 MG TABLET (FOR DETOX USE ONLY) PO ONE (10:00)
[2022-01-01] MEDS ORDERED: PRENATAL VITAMINS W/ FOLIC ACID TABLET (FP) PO SCH (10:00)
[2022-01-01] MEDS: hydrOXYzine PAMOATE 25 MG CAPSULE (FP) PO PRN ×2 (10:07→14:35)
[2022-01-01] MEDS: METHOCARBAMOL 500 MG TABLET PO PRN (10:10)
[2022-01-01 13:25] LABS: HEMATOCRIT 40.6 % (32.4-45.2); HEMOGLOBIN 13.2 GM/dL (10.7-15.3); MCH 30.1 pg (25.7-33.7); MCHC 32.6 g/dl (32.0-36.0); MEAN CELL VOLUME 92.5 fl (80-96); MEAN PLT VOLUME 8.4 fl (7.5-11.1); PLATELET COUNT 387 10^3/uL (134-434); RBC 4.39 M/mm3 (3.60-5.2); RDW 13.7 % (11.6-15.6)
[2022-01-01 13:29] LABS: CALCIUM 9.4 mg/dL (8.5-10.1)
[2022-01-01 13:30] LABS: ALBUMIN 3.5 g/dl (3.4-5.0); BLOOD UREA NITROGEN 20.8 mg/dL (7-18)
[2022-01-01 13:33] LABS: CREATININE 1.6 mg/dL (0.55-1.3)
[2022-01-01 13:35] LABS: BILIRUBIN,TOTAL 0.2 mg/dL (0.2-1); TOT PROT 7.2 g/dl (6.4-8.2)
[2022-01-01] MEDS ORDERED: GABAPENTIN 100 MG CAPSULE PO SCH (14:00)
[2022-01-01] MEDS: diazePAM 5 MG TABLET PO PRN (15:12)
[2022-01-01] MEDS ORDERED: SUVOREXANT 10 MG TABLET PO PRN ×2 (22:00)
[2022-01-03] MEDS ORDERED: methaDONE HCL 10 MG TABLET (FOR DETOX USE ONLY) PO ONE (10:00)
[2022-01-05] MEDS ORDERED: methaDONE HCL 10 MG TABLET (FOR DETOX USE ONLY) PO ONE (10:00)
== END 2022-01-01 15:00 | disposition left against medical advice (07) | DRG 770 ==
LOC: YASAS 09:30 → UNDOADMIN 11:18 → Y6N 11:18 → UNDODISIN 01-01 15:00
PROVIDERS: ADMIT Allergy & Immunology; ATTEND Surgery
PROC: HZ2ZZZZ Detoxification Services for Substance Abuse Treatment (ICD-10-PCS; principal; 2021-12-31)
DX: F11.23 Opioid dependence with withdrawal (principal); F10.230 Alcohol dependence with withdrawal, uncomplicated; F14.20 Cocaine dependence, uncomplicated; F12.20 Cannabis dependence, uncomplicated; F17.210 Nicotine dependence, cigarettes, uncomplicated; F19.280 Other psychoactive substance dependence with psychoactive substance-induced anxiety disorder; F19.282 Other psychoactive substance dependence with psychoactive substance-induced sleep disorder; F31.9 Bipolar disorder, unspecified; F43.10 Post-traumatic stress disorder, unspecified; M54.50 Low back pain, unspecified; G89.29 Other chronic pain; R63.4 Abnormal weight loss; Z68.22 Body mass index [BMI] 22.0-22.9, adult; Z62.810 Personal history of physical and sexual abuse in childhood
CPT/HCPCS: 36415; 80053; 81025; 85027; 86780; C9803-CS; U0003; U0005

== ENCOUNTER 2023-07-29 16:11 | Inpatient (IN) | payer OTHER ==
[2023-07-29 16:39] VITALS: BMI 22.1
[2023-07-29] MEDS ORDERED: cloNIDine HCL 0.1 MG TABLET PO PRN (18:01)
[2023-07-29] MEDS ORDERED: cloNIDine HCL 0.1 MG TABLET ONE (18:14)
[2023-07-29] MEDS ORDERED: BISMUTH SUBSALICYLATE 524 MG/30 ML PO PRN (19:01)
[2023-07-29] MEDS ORDERED: NALOXONE HCL 0.4 MG/ML VIAL IM PRN (19:01)
[2023-07-29] MEDS ORDERED: ONDANSETRON *ODT* 4 MG TABLET SL PRN (19:01)
[2023-07-29] MEDS ORDERED: BENZOCAINE/MENTHOL (CHLORASEPTIC ) LOZENGE MM PRN (19:01)
[2023-07-29] MEDS ORDERED: ACETAMINOPHEN 325 MG TABLET (FP) PO PRN (19:01)
[2023-07-29] MEDS ORDERED: LOPERAMIDE HCL 2 MG CAPSULE PO PRN (19:01)
[2023-07-29] MEDS ORDERED: IBUPROFEN 600 MG TABLET (FP) PO PRN (19:01)
[2023-07-29] MEDS ORDERED: IBUPROFEN 400 MG TABLET (FP) PO PRN (19:01)
[2023-07-29] MEDS ORDERED: DICYCLOMINE HCL 10 MG CAPSULE PO PRN (19:01)
[2023-07-29] MEDS ORDERED: POLYETHYLENE GLYCOL (HEALTHYLAX) 3350 17 GM PACKET PO PRN (19:01)
[2023-07-29] MEDS ORDERED: NICOTINE POLACRILEX 2 MG GUM BUC PRN (19:01)
[2023-07-29] MEDS ORDERED: guaiFENesin 600 MG TABLET.ER (FP) PO PRN (19:01)
[2023-07-29] MEDS ORDERED: BENZONATATE 200 MG CAPSULE PO PRN (19:01)
[2023-07-29] MEDS ORDERED: NALOXONE HCL (KLOXXADO) 8 MG SPRAY NS PRN (19:01)
[2023-07-29] MEDS ORDERED: MAGNESIUM HYDROX 2400MG/30ML ORAL SUSPENSION 30 ML CUP PO PRN (19:01)
[2023-07-29] MEDS ORDERED: MAG HYDROX/AL HYDROX/SIMETH 30 ML UNIT-DOSE CUP PO PRN (19:01)
[2023-07-29] MEDS ORDERED: METOPROLOL TARTRATE 25 MG TABLET (FP) ONE (22:22)
[2023-07-29] MEDS: THIAMINE HCL 100 MG TABLET (FP) PO SCH (22:24)
[2023-07-29] MEDS: METOPROLOL TARTRATE 25 MG TABLET (FP) PO ONE (22:25)
[2023-07-30] MEDS: MELATONIN 5 MG TABLETS PO SCH (00:25)
[2023-07-30] MEDS ORDERED: hydrOXYzine PAMOATE 25 MG CAPSULE (FP) PO ONE (05:49)
[2023-07-30] MEDS ORDERED: cloNIDine HCL 0.1 MG TABLET ONE (05:49)
[2023-07-30] MEDS: hydrOXYzine PAMOATE 25 MG CAPSULE (FP) PO PRN (05:59)
[2023-07-30] MEDS: cloNIDine HCL 0.1 MG TABLET PO ONE (06:00)
[2023-07-30] MEDS: PRENATAL VITAMINS W/ FOLIC ACID TABLET (FP) PO SCH (10:55)
[2023-07-30] MEDS ORDERED: cloNIDine HCL 0.1 MG TABLET PO PRN (11:53)
[2023-07-30] MEDS: amLODIPine BESYLATE 10 MG TABLET (FP) PO SCH (12:11)
[2023-07-30] MEDS: methaDONE HCL 10 MG TABLET (FOR DETOX USE ONLY) PO ONE (12:27)
[2023-07-31 06:02] VITALS: BP 132/90; PULSE 108; RESP 16; TEMP 98
[2023-07-31] MEDS: cloNIDine HCL 0.1 MG TABLET PO PRN (06:03)
[2023-07-31] MEDS: METHOCARBAMOL 500 MG TABLET PO PRN (06:03)
[2023-08-01] MEDS ORDERED: methaDONE HCL 10 MG TABLET (FOR DETOX USE ONLY) PO ONE (10:00)
[2023-08-03] MEDS ORDERED: methaDONE HCL 10 MG TABLET (FOR DETOX USE ONLY) PO ONE (10:00)
== END 2023-07-31 08:38 | disposition left against medical advice (07) | DRG 770 ==
LOC: YASAS 16:11 → Y3N 07-30 10:23
PROVIDERS: ADMIT Allergy & Immunology; ATTEND Surgery
PROC: HZ2ZZZZ Detoxification Services for Substance Abuse Treatment (ICD-10-PCS; principal; 2023-07-30)
DX: F11.23 Opioid dependence with withdrawal (principal); I10 Essential (primary) hypertension; F17.210 Nicotine dependence, cigarettes, uncomplicated
CPT/HCPCS: 81025; 82962; 93005; 93010